=== PATIENT | male | born 1980 | race Caucasian/White ===

== ENCOUNTER → 2019-01-23 | Outpatient (CLI) | payer OTHER | END | disposition home or self-care (01) | LOC: CVU 07:01 | PROVIDERS: ATTEND Internal Medicine Cardiovascular Disease | DX: R93.1 Abnormal findings on diagnostic imaging of heart and coronary circulation (principal) | CPT/HCPCS: 93306 ==

== ENCOUNTER 2019-04-22 14:16 | Emergency (ER) | payer OTHER ==
[~2019-04-22] VITALS: Ht 188 cm; Wt 63.8 kg
--- NOTE | 2019-04-22 14:48 | NUR ---
REPORT FROM ISHMAEL De Leon RN.
[2019-04-22 14:59] LABS: BASOPHILS # (AUTO) 0.05 x10^3/uL (0-0.1); BASOPHILS % (AUTO) 0 % (0-1); EOSINOPHILS # (AUTO) 0.34 x10^3/uL (0-0.4); EOSINOPHILS % (AUTO) 3 % (1-7); LYMPHOCYTES # (AUTO) 0.77 x10^3/uL (1-3.4); LYMPHOCYTES % (AUTO) 7 % (22-44); MD NO; MEAN CORPUSCULAR HEMOGLOBIN 30.5 pg (27.5-34.5); MEAN CORPUSCULAR HGB CONC 33.5 g/dL (33.2-36.2); MEAN CORPUSCULAR VOLUME 91.2 fL (81-97); MEAN PLATELET VOLUME 10.6 fL (7.4-10.4); MONOCYTES # (AUTO) 0.71 x10^3/uL (0.2-0.8); MONOCYTES % (AUTO) 6 % (2-9); NEUTROPHILS # (AUTO) 9.58 x10^3/uL (1.8-6.8); NEUTROPHILS % (AUTO) 84 % (42-75); PLATELET COUNT 194 x10^3/uL (130-400); RED BLOOD COUNT 4.92 x10^6/uL (4.38-5.82); RED CELL DISTRIBUTION WIDTH 12.6 % (9.4-14.8)
[2019-04-22 15:09] LABS: ALANINE AMINOTRANSFERASE 20 U/L (12-78); ALBUMIN 4.1 g/dL (3.4-5.0); ANION GAP 7 mmol/L (5-15); CALCIUM 8.6 mg/dL (8.5-10.1); CHLORIDE 104 mmol/L (98-107); CREATININE 1.05 mg/dL (0.7-1.3)
[2019-04-22 15:13] LABS: ALKALINE PHOSPHATASE 65 U/L (45-117); BILIRUBIN,TOTAL 0.8 mg/dL (0.2-1.0); TOTAL PROTEIN 7.4 g/dL (6.4-8.2); TROPONIN I < 0.015 ng/mL (0.000-0.045)
--- NOTE | 2019-04-22 15:15 | NUR ---
REPORT TO TRACY BURNETT.
--- NOTE | 2019-04-22 15:20 | NUR ---
Note rachell in [facility] - 04/22/19 at 1521 by JOSEE REPORT FROM [facility]. PT RESTING IN [place] RD[facility] NOTED. WOUND RN SPEAKING WITH PT
--- NOTE | 2019-04-22 15:22 | NUR ---
REPORT FROM [facility]
[2019-04-22 15:46] LABS: D-DIMER < 0.19 ug/mlFEU (0.00-0.52); INTERNATIONAL NORMALIZED RATIO 1.05 (0.93-1.1); PARTIAL THROMBOPLASTIN TIME 24 Seconds (25-31); PROTHROMBIN TIME 11.1 Seconds (9.6-11.5)
--- NOTE | 2019-04-22 15:47 | NUR ---
CALLED LAB REGARDING PENDING COAGS
--- NOTE | 2019-04-22 16:11 | NUR ---
PT UPDATED TO POC (CTA) AND DEMONSTRATES UNDERSTANDING. PT AMBULATED STEADILY TO BATHROOM WO CO INCREASED PAIN/SOB.
[2019-04-22] MEDS ORDERED: OMNIPAQUE 350 MG/ML, 100ML BOTTLE ONE (17:21)
--- NOTE | 2019-04-22 18:16 | NUR ---
TASK RN, FIRST CONTACT WITH PT: Patient given discharge instructions and they have confirmed that they understand the instructions. Patient ambulatory with steady gait. Pt left with d/c paperwork, referral paperwork, and all personal belongings.
[2019-04-22 18:17] VITALS: BP 117/73
== END 2019-04-22 18:20 | disposition home or self-care (01) ==
LOC: ED 15:16
DX: R07.89 Other chest pain (principal); R06.02 Shortness of breath
CPT/HCPCS: 36415; 71045; 71275; 80053; 83880; 84484; 85025; 85379; 85610; 85730; 93005; 99285; Q9967

== ENCOUNTER → 2019-06-13 | Outpatient (CLI) | payer OTHER | END | disposition home or self-care (01) | LOC: CVU 06:55 | PROVIDERS: ATTEND Internal Medicine Cardiovascular Disease | DX: R93.1 Abnormal findings on diagnostic imaging of heart and coronary circulation (principal); R00.2 Palpitations | CPT/HCPCS: 78452; 93017; 93306; A9502 ==